=== PATIENT | male | born 2000 | race Caucasian/White ===

== ENCOUNTER 2022-04-26 16:31 | Emergency (ER) | payer BC, SELFPAY ==
[2022-04-26 16:42] VITALS: BP 148/110; PULSE 76; RESP 24; TEMP 36.8; O2SAT 98
--- NOTE | 2022-04-26 17:03 | W.ED.GENAD ---
Discharge Plan Disposition Patient Disposition: Home Discharge Details Clinical Impression: Dislocation of shoulder, right, closed ED Provider: Reinier Pritchett Home Meds and New Rx's Prescriptions: No Action omeprazole 40 mg Capsule,Delayed Release(Dr/Ec) 40 mg PO DAILY Discharge Instructions Instructions: Shoulder Dislocation (ED) Additional Instructions: Your dislocated shoulder has has been reduced. Please take 1000 mg of Tylenol every 6 hours and 800 mg of Motrin every 6 hours for pain and swelling. Please avoid any significant vigorous physical activity with your right shoulder for the next 3 to 5 days as there is a risk for a repeat dislocation. If you notice any worsening of your symptoms, or any new symptoms such as vomiting, diarrhea, fever, chills, shortness of breath, chest pain, numbness, weakness, or fainting , please return immediately to the emergency department for reevaluation. Please follow up with your primary care provider as soon as possible for reassessment and reevaluation. As always, it was a pleasure participating in your medical care today. Stand Alone Forms: Work Release Medical Decision Making 22-year-old male with a past medical history of multiple previous right shoulder dislocations presents today for evaluation of a shoulder dislocation. He was performing jumping jacks when his shoulder popped out. He came to the ER for further assessment. He describes pain in his right shoulder. He denies any other trauma. He denies any current numbness or tingling. He denies any other trauma. He is specifically requesting disassociative sedation, narcotic pain meds and reduction, and I do not need any x-rays. No other complaints at this time. Physical exam demonstrates a slightly malpositioned humeral head. Patient upon arrival was very clear that he wanted disassociative sedation, narcotic pain meds, and reduction and no x-rays. He stated the last 3 places that I have gone did not need x-rays, so I do not need any here. I did offer a nonsedating counter traction/traction technique with the parking technique. Patient initially refused, however after discussing risk and benefits of sedation patient agreed. Procedure was performed and the patient's right shoulder was reduced and about 8 seconds. Patient tolerated this well. He had excellent range of motion post procedurally. Intact neurovascular exam post procedurally. Patient states he felt much better. Patient again refused any x-rays and said that he has never gotten any x-rays anywhere else and did not need any today. We discussed the risk and benefits of this and he understands. After discharge instructions were printed and the patient did ask for pain medications. I did offer Tylenol and Motrin, but he specifically requested fentanyl before discharge. No clear clinical indication at this time as there is no evidence clinically based on exam of significant fracture. Additionally patient was requesting to go back to work, and I did not feel that this would be beneficial for working in a high stakes environment with narcotics on board. We continue to offer NSAIDs to the patient, for which he declined. I have extensively reviewed the treatment plan and discharge instructions with the patient. I have addressed all patient concerns at this time. The patient was made aware of what symptoms to monitor for that would warrant a return to the emergency department. Discussed the plan with the patient, they demonstrate verbal understanding and agreement with our assessment and plan at this time. The documentation in this chart was dictated using [employer] dictation software. Please excuse any dictation errors. HPI General Date/Time Provider Initiated Documentation: 04/26/22 16:53. HPI Narrative: 22-year-old male with a past medical history of multiple previous right shoulder dislocations presents today for evaluation of a shoulder dislocation. He was performing jumping jacks when his shoulder popped out. He came to the ER for further assessment. He describes pain in his right shoulder. He denies any other trauma. He denies any current numbness or tingling. He denies any other trauma. He is specifically requesting disassociative sedation, narcotic pain meds and reduction, and I do not need any x-rays. No other complaints at this time. Related Data Home Medications Medication Instructions Recorded Confirmed omeprazole 40 mg capsule,delayed 40 mg PO DAILY 04/26/22 04/26/22 release Allergies Allergy/AdvReac Type Severity Reaction Status Date / Time diphenhydramine Allergy Intermediate Hives Unverified 04/26/22 16:48 [From Benadryl] General Stated Complaint: Orthopedic PJ: 3 Review of Systems All systems reviewed & are unremarkable except as noted in HPI and below PFSH All Active Problems Dislocation of shoulder, right, closed (Acute) Social History (Reviewed 03/15/23 @ 17:11 by VANDANA Alba Smoking/Tobacco Use Status: Current every day Tobacco Type: cigarettes Smoking risk assessment performed?: Yes Alcohol Intake: current Alcohol Intake frequency: a few times a week Drug use: Daily Substance use type: marijuana Do you feel safe at home: Yes Do you feel safe in your relationship?: Yes Exam Narrative Exam Narrative: 1.Const: Well-nourished, Well-developed, appearing stated age 2.Eyes: PERRL, no conjunctival injection, and symmetrical lids. 3.ENT: Atraumatic external nose and ears. Moist MM. Neck: Symmetric, trachea midline, No thyromegaly. 4.CVS: +S1/S2, No murmurs or gallops. Peripheral pulses 2+ and equal in all extremities. Brisk capillary refill in all extremities. 5.RESP: Unlabored respiratory effort. Clear to auscultation bilaterally. No wheezes rales or rhonchi 6.GI: Soft, Nontender/Nondistended, No hepatosplenomegaly. No guarding or rebound. 7.MSK: Normocephalic/Atraumatic, right upper extremity demonstrates slightly malpositioned right humeral head. No tenderness over the mid to distal humerus, no tenderness at the clavicle or scapula. 8.Skin: Warm, Dry. No rashes or lesions. 9.Neuro: ribbon lap machine tender II-XII grossly intact. Sensation grossly intact, no focal neurologic deficits. Normal sensation distally. 10.Psych: (AAO) x3. Appropriate mood and affect Course Vital Signs Vital signs: Vital Signs Temperature 36.8 C 04/26/22 16:42 Pulse 76 04/26/22 16:42 Respiratory Rate 24 04/26/22 16:42 Blood Pressure 148/110 H 04/26/22 16:42 Pulse Oximetry 98 04/26/22 16:42 Temperature 36.8 C 04/26/22 16:42 Temperature Source Skin 04/26/22 16:42 Pulse 76 04/26/22 16:42 Respiratory Rate 24 04/26/22 16:42 Respiratory Effort Normal 04/26/22 16:49 Blood Pressure 148/110 H 04/26/22 16:42 Blood Pressure Position Sitting 04/26/22 16:42 Pulse Oximetry 98 04/26/22 16:42 Oxygen Delivery Method Room Air 04/26/22 16:42 Oxygen Flow Rate 0 03/15/23 16:42 Pain Level 10 04/26/22 16:42 Procedures Orthopedic Joint Reduction Joint #1: Time Out Performed: Yes Side: right Joint Reduction Location: shoulder Analgesia: none Shoulder Technique Used (if applicable): traction/counter-traction Technique used: traction/counter-traction Post-reduction neuro exam: intact Post-reduction vascular: intact Post Reduction X-Ray Obtained: No (patient refused) Splint Applied: Yes Patient Tolerated Procedure: well and no complications
[2022-04-26 17:11] VITALS: BP 136/90; PULSE 72; RESP 16; O2SAT 98
[2022-04-26 17:15] VITALS: BP 136/90; PULSE 72; RESP 16; O2SAT 98
== END 2022-04-26 17:11 | disposition home or self-care (01) ==
LOC: ER 18:21
PROVIDERS: Emergency Provider Student in an Organized Health Care Education/Training Program
DX: S43.004A Unspecified dislocation of right shoulder joint, initial encounter (principal); X58.XXXA Exposure to other specified factors, initial encounter
CPT/HCPCS: 25630; 99282